=== PATIENT | female | born 1955 | race Caucasian/White ===

== ENCOUNTER 2016-08-20 07:50 | Day surgery (SDC) | payer OTHER ==
--- NOTE | ~2016-08-20 | EGD ---
EGD REPORT [facility] [address] [address] NAME: ANEL PATINO : [birth year] STATUS : REG [facility]#: [id number] AGE: 60 ADM/REG DATE : 08/20/16 MR#: [id number] REPORT SERV DATE: 08/20/16 DICTATED BY: SAL STILES DATE: 08/20/16 REPORT STATUS : Draft TRANSCRIBED BY: [employer] DATE: 08/20/16 [facility] Center Patient Name: Anel Patino Date of : 1955 Attending MD: SAL STILES MD Procedure Date No Time: 08/20/2016 Procedure: Colonoscopy Indications: High risk colon cancer surveillance: Personal history of colonic polyps Referring MD: LYNDA VINES Medicines: Monitored Anesthesia Care Complications: No immediate complications. Procedure: Pre-Anesthesia Assessment: - ASA Grade Assessment: II - A patient with mild systemic disease. After I obtained informed consent, the scope was passed under direct vision. Throughout the procedure, the patient's blood pressure, pulse, and oxygen saturations were monitored continuously. The PCF [id number] was introduced through the anus and advanced to the terminal ileum, with identification of the appendiceal orifice and IC valve. The colonoscopy was performed with moderate difficulty due to significant looping and a tortuous colon. Successful completion of the procedure was aided by applying abdominal pressure. The patient tolerated the procedure well. The quality of the bowel preparation was good. Findings: The terminal ileum appeared normal. Three sessile polyps were found in the cecum. The polyps were 2 to 3 mm in size. These polyps were removed with a cold biopsy forceps. Resection and retrieval were complete. Hemorrhoids were found during retroflexion and were moderate. Impression: - The examined portion of the ileum was normal. - Three 2 to 3 mm polyps in the cecum. Resected and retrieved. - Hemorrhoids. Recommendation: - Patient has a contact number available for emergencies. The signs and symptoms of potential delayed complications were discussed with the patient. Return to normal activities tomorrow. Written discharge instructions were provided to the patient. EGD REPORT [address] [address] NAME: ANEL PATINO : [birth year] STATUS : REG [facility]#: [id number] AGE: 60 ADM/REG DATE : 08/20/16 MR#: [id number] REPORT SERV DATE: 08/20/16 DICTATED BY: SAL STILES DATE: 08/20/16 REPORT STATUS : Draft TRANSCRIBED BY: [employer] DATE: 08/20/16 - Regular diet. - Continue present medications. - Repeat colonoscopy in 5 years for surveillance. - Return to GI clinic PRN. Procedure Code(s): --- Professional --- 14460, Colonoscopy, flexible, proximal to splenic flexure; with biopsy, single or multiple Diagnosis Code(s): --- Professional --- K64.9, Unspecified hemorrhoids D12.0, Benign neoplasm of cecum Z86.010, Personal history of colonic polyps CPT copyright 2013 [employer]. All rights reserved. The codes documented in this report are preliminary and upon die maker review may be revised to meet current compliance requirements. SAL STILES MD 08/20/2016 10:30 AM This report has been signed electronically. Number of Addenda: 0 Note Initiated On: 08/20/2016 10:00 AM Scope Withdrawal Time 0 hours 8 minutes 31 seconds [address] [place] [address]
[~2016-08-20 07:50] MED LIST: ALLEGRA PO; AMIT25 PO; ASAB PO; BEN25 PO; CELEXA40 MG PO; EFFEX75 PO; EFFEXXR75 PO; K500 PO; KLONOPIN WAF0.25 MG PO; MOBIC15 MG PO; NAP500 PO; PRILO PO; SEROQUEL1C PO; ULTRAM50 PO; ZOCOR10 PO; ZOCOR20 PO
== END 2016-08-20 23:59 | disposition home or self-care (01) ==
LOC: DMU 07:50
PROVIDERS: Internal Medicine Gastroenterology
PROC: 0DBH8ZX Excision of Cecum, Via Natural or Artificial Opening Endoscopic, Diagnostic (ICD-10-PCS; principal; 2016-08-20 10:00)
DX: D12.0 Benign neoplasm of cecum (principal); K64.9 Unspecified hemorrhoids; E78.5 Hyperlipidemia, unspecified; M79.7 Fibromyalgia; F41.9 Anxiety disorder, unspecified; F32.9 Major depressive disorder, single episode, unspecified; E78.00 Pure hypercholesterolemia, unspecified; Z86.010 Personal history of colon polyps; Z80.0 Family history of malignant neoplasm of digestive organs; Z88.5 Allergy status to narcotic agent; Z79.899 Other long term (current) drug therapy; Z98.51 Tubal ligation status; Z98.890 Other specified postprocedural states
CPT/HCPCS: 88305